=== PATIENT | female | born 1975 | race Caucasian/White ===

== ENCOUNTER 2021-11-22 11:08 | Emergency (ER) | payer MEDICAID ==
[~2021-11-22] VITALS: Ht 154.9 cm; Wt 118.0 kg
[2021-11-22 11:12] VITALS: BP 141/72
[2021-11-22] MEDS ORDERED: METF-874 PO (11:19)
[2021-11-22] MEDS ORDERED: CEPH500T MT (11:45)
[2021-11-22] MEDS ORDERED: IBUP-2030 MT (11:45)
== END 2021-11-22 11:52 | disposition home or self-care (01) ==
LOC: ER 11:08
DX: K61.1 Rectal abscess (principal); E11.9 Type 2 diabetes mellitus without complications; Z98.890 Other specified postprocedural states
CPT/HCPCS: 82962; 99283